=== PATIENT | female | born 1965 | race Caucasian/White ===

== ENCOUNTER 2018-01-17 05:50 | Day surgery (SDC) | payer OTHER ==
[2018-01-17 07:13] LABS: ADD MAN DIFF? NO
[2018-01-17] MEDS ORDERED: BUPIVACAINE 0.5% (SDV) 30 ML INJ (07:14)
[2018-01-17] MEDS ORDERED: BUPIVACAINE 0.25%/EPI (SDV) 10 ML INJ (07:15)
[2018-01-17 07:17] LABS: BASOPHIL # 0.1 10^3/ul (0.0-0.1); BASOPHILS % 0.7 % (0.0-2.0); EOSINOPHILS # 0.7 10^3/ul (0.0-0.5); EOSINOPHILS % 8.1 % (0.0-7.0); HEMATOCRIT 36.9 % (37.0-47.0); HEMOGLOBIN 12.3 g/dl (12.0-16.0); LYMPHOCYTES # 3.2 10^3/ul (0.8-2.9); LYMPHOCYTES % 37.4 % (15.0-51.0); MEAN CORPUSCULAR HEMOGLOBIN 29.5 pg (29.0-33.0); MEAN CORPUSCULAR HGB CONC 33.3 g/dl (32.0-37.0); MEAN CORPUSCULAR VOLUME 88.5 fl (82.0-101.0); MEAN PLATELET VOLUME 10.6 fl (7.4-10.4); MONOCYTE # 0.9 10^3/ul (0.3-0.9); MONOCYTES % 10.4 % (0.0-11.0); NEUTROPHIL # 3.7 10^3/ul (1.6-7.5); NEUTROPHILS % 43.2 % (39.0-77.0); PLATELET COUNT 272 10^3/UL (140-415); RED BLOOD COUNT 4.17 10^6/ul (4.20-5.40); RED CELL DISTRIBUTION WIDTH 12.7 % (11.5-14.5)
[2018-01-17 07:17] LABS: WHITE BLOOD COUNT 8.6 10^3/ul (4.8-10.8)
[2018-01-17 07:19] LABS: ADD UMIC YES; UR ASCORBIC ACID NEGATIVE (NEGATIVE); UR BILIRUBIN (Dip) NEGATIVE (NEGATIVE); UR BLOOD (Dip) NEGATIVE (NEGATIVE); UR CLARITY SLIGHTLY CLOUDY (CLEAR); UR COLOR YELLOW (YELLOW); UR GLUCOSE (Dip) NEGATIVE (NEGATIVE); UR KETONES (Dip) NEGATIVE (NEGATIVE); UR LEUKOCYTE ESTERASE (Dip) 2+ Leu/ul (NEGATIVE); UR MUCUS FEW /HPF (NONE SEEN); UR NITRITE (Dip) NEGATIVE (NEGATIVE); UR RBC 3 /HPF (0-5); UR SPECIFIC GRAVITY (Dip) 1.023 (1.003-1.030); UR SQUAMOUS EPITHELIAL CELL FEW /HPF (FEW); UR TOTAL PROTEIN (Dip) NEGATIVE (NEGATIVE); UR UROBILINOGEN (Dip) NEGATIVE (NEGATIVE); UR WBC 13 /HPF (0-5)
[2018-01-17] MEDS ORDERED: MIDAZOLAM 1 MG/ML 2 ML INJ (08:14)
[2018-01-17] MEDS ORDERED: FENTAnyl 50 MCG/ML VIAL (08:14)
[2018-01-17] MEDS ORDERED: CEFAZOLIN 1 GM INJ (09:00)
[2018-01-17] MEDS ORDERED: PROPOFOL 20 ML (09:00)
[2018-01-17] MEDS ORDERED: LIDOCAINE 2% (SDV) 5 ML INJ (09:00)
[2018-01-17] MEDS ORDERED: ONDANSETRON 4 MG INJ (09:01)
[2018-01-17] MEDS: LACTATED RINGER'S 1,000 ML IV* (09:17)
[2018-01-17] MEDS: HYDROmorphONE 1 MG/5 ML IV SYRINGE IV ×4 (09:17→10:38)
[2018-01-17] MEDS ORDERED: MEPERIDINE 25 MG INJ IV (09:30)
[2018-01-17] MEDS ORDERED: FENTAnyl 50 MCG/ML VIAL IV (09:30)
[2018-01-17] MEDS ORDERED: ONDANSETRON 4 MG INJ IV (09:30)
[2018-01-17] MEDS ORDERED: METOCLOPRAMIDE 10 MG INJ IV (09:30)
[2018-01-17] MEDS ORDERED: DIPHENHYDRAMINE 50 MG INJ IV (09:30)
[2018-01-17] MEDS: OXYCODONE/ACETAMINOPHEN (5/325) TAB PO (09:50)
[2018-01-17] MEDS ORDERED: OXYCODONE/ACETAMINOPHEN (5/325) TAB PO (10:00)
== END 2018-01-17 11:28 | disposition home or self-care (01) ==
LOC: SDS 05:50
DX: M65.4 Radial styloid tenosynovitis [de Quervain] (principal)
CPT/HCPCS: 25000; 81001; 85025; 93005